=== PATIENT | female | born 1980 ===

== ENCOUNTER 2023-12-25 09:13 | Outpatient (REF) | payer OTHER, SELFPAY ==
--- NOTE | ~2023-12-25 | US_ITS ---
EXAMINATION: US PELVIS CLINICAL INFORMATION: Right pelvic pain, LMP 12/10/2023 COMPARISON: None TECHNIQUE: Ultrasound of the pelvis is performed using both transabdominal and transvaginal transducers along with Doppler. Transvaginal imaging is performed due to inadequate visualization transabdominally. FINDINGS: Uterus: The uterus is anteverted and measures 7.4 x 3.2 x 4.3 cm. The double wall endometrial thickness is 8 mm. The uterus is smooth in contour and has normal myometrial echogenicity. No visible fibroid. Adnexa: Both ovaries are visualized. There is normal color flow to the adnexa. There is no ovarian torsion. There is no pelvic ascites or fluid collection. Right ovary measures 2.1 x 2.5 x 2.3 cm. Intraovarian 1.2 cm simple avascular cyst. Left ovary measures 2.5 x 1.5 x 2.1 cm. US/US pelvic and transvaginal IMPRESSION: Right ovarian 1.2 cm simple avascular cyst. No follow-up imaging recommended.
== END 2023-12-25 09:14 | disposition home or self-care (01) ==
LOC: HO.UMASIMG 09:13
PROVIDERS: Visit Provider Nurse Practitioner Women's Health
DX: R10.2 Pelvic and perineal pain (principal)
CPT/HCPCS: 76830; 76856